=== PATIENT | female | born 1985 | race Caucasian/White ===

== ENCOUNTER 2018-06-23 19:55 | Emergency (ER) | payer OTHER ==
[~2018-06-23] VITALS: Ht 149.9 cm; Wt 68.0 kg
[2018-06-23 20:36] VITALS: BP 140/65
--- NOTE | 2018-06-23 20:36 | ED EAR COMPLAINT ---
History of Present Illness General Chief Complaint: Ear Complaints Stated Complaint: RIGHT EAR PAIN X 2 DAYS PER PT Source: patient Exam Limitations: no limitations Vital Signs & Intake/Output Vital Signs & Intake/Output Vital Signs Date Time Temp Pulse Resp B/P B/P Pulse O2 O2 Flow FiO2 Mean Ox Delivery Rate 06/23 2036 98.2 80 16 140/65 98 Room Air Room Air ED Intake and Output 06/24 0000 06/23 1200 Intake Total 0 Output Total Balance 0 Intake, Oral 0 Patient 150 lb Weight Allergies Coded Allergies: MDX - Codeine (CODEINE) (Severe, THROAT CLOSES 06/23/18) MDX - Bismuth Subsalicylate (From PEPTO BISMOL) (Intermediate, RASH 06/23/18) Reconcile Medications Amoxicillin/Potassium Clav (Augmentin 875-125 Tablet) 875 MG-125 MG TABLET 1 TAB PO BID OTTISI MEDIA Ciprofloxacin HCl/Dexameth (Ciprodex Otic Suspension) 0.3 %-0.1 % DROPS.SUSP 4 GTT OT BID OTITIS EXTERNA Triage Nurses Notes Reviewed? yes Onset: Abrupt Duration: day(s):, constant Timing: recent history Injury Environment: home Severity: moderate, severe No Modifying Factors: none : No Patient currently breastfeeds: No HPI: 33-year-old female comes into the emergency room for further evaluation of right ear pain. Symptoms been going on for the past couple days. Patient reports that today she cannot hear out of her right ear. She comes in for further evaluation. Denies any other associated symptoms. (Zach Mckoy) Past History Travel History Traveled to [place] past 21 day No Medical History Any Pertinent Medical History? see below for history Neurological: NONE EENT: NONE Cardiovascular: NONE Respiratory: NONE Gastrointestinal: NONE Hepatic: NONE Renal: NONE Musculoskeletal: NONE Psychiatric: NONE Endocrine: NONE Blood Disorders: NONE Cancer(s): NONE OPERATIONS MANAGER ASSISTANT/Reproductive: NONE Surgical History Surgical History: non-contributory Psychosocial History What is your primary language Egyptian Tobacco Use: Never used ETOH Use: denies use Illicit Drug Use: denies illicit drug use Family History Hx Contributory? No (Zach Mckoy) Review of Systems Review of Systems Constitutional: Reports: no symptoms. EENTM: Reports: see HPI. Respiratory: Reports: no symptoms. Cardiovascular: Reports: no symptoms. GI: Reports: no symptoms. Genitourinary: Reports: no symptoms. Musculoskeletal: Reports: no symptoms. Skin: Reports: no symptoms. Neurological/Psychological: Reports: no symptoms. Hematologic/Endocrine: Reports: no symptoms. Immunologic/Allergic: Reports: no symptoms. All Other Systems: Reviewed and Negative (Zach Mckoy) Physical Exam Physical Exam General Appearance: well developed/nourished, mild distress Head: atraumatic Eyes: Bilateral: normal appearance. Ears: Right: swelling (external auditory canal), Tympanic dull. Nose: normal inspection Neck: normal inspection Cardiovascular/Respiratory: no respiratory distress Back: normal inspection Neurologic/Psych: awake, alert, oriented x 3, normal mood/affect Skin: intact, normal color, warm/dry (Zach Mckoy) Progress Differential Diagnoses I considered the following diagnoses in my evaluation of the patient: Otitis media, otitis externa, mastoiditis, Plan of Care: 06/23/2018 9:58:47 PM Patient clinically looks well. In no apparent distress. Nontoxic-appearing. Symptoms are most consistent with otitis externa. Patient started on oral antibiotics. Patient will require topical drops. Initial ED EKG: none (Zach Mckoy) Departure Departure Disposition: HOME OR SELF CARE Condition: Stable Clinical Impression Primary Impression: Right otitis externa Referrals: Patient Has No Primary Care Dr (PCP/Family) Additional Instructions: Use Ciprodex drops as prescribed. Take Augmentin as prescribed. Follow-up with ENT Dr. if not better by Thursday. Return if any other concerns. Please go over all results of today's visit with your primary care doctor. Contact your primary care doctor to let them know you were here in the emergency room. There may be nonspecific findings which may not be related to your visit today here in the emergency room but may require further evaluation and chronic monitoring by your primary care doctor. If you had a laceration today the chance of foreign body always remains. You should follow-up with your primary care doctor for recheck in 3-5 days for a wound check. If you had an x-ray done there is a chance that a fracture could have been missed on initial read and you should follow-up with your primary care doctor for repeat x-rays if symptoms persist. If your blood pressure was elevated here in the emergency room please have rechecked by [facility] primary care doctor within the next 48. If you were prescribed a narcotic here in the emergency room or any type of controlled substances you're not allowed to drive while taking this medication or operate any type of heavy machinery. Narcotics can make you feel lightheaded dizziness nausea and can cause constipation. You may need to picking belt operator a stool softener. Thank you for choosing [facility] emergency room. Please return to the emergency room immediately if you have any other concerns worsening of symptoms. Departure Forms: Customer Survey General Discharge Information Prescriptions: Current Visit Scripts Ciprofloxacin HCl/Dexameth (Ciprodex Otic Suspension) 4 GTT OT BID #1 BOT Amoxicillin/Potassium Clav (Augmentin 875-125 Tablet) 1 TAB PO BID #20 TAB (Zach Mckoy) PA/FLAKER TENDER Co-Sign Statement Statement: ED Attending supervision documentation- I saw and evaluated the patient. I have also reviewed all the pertinent lab results and diagnostic results. I agree with the findings and the plan of care as documented in the PA's/FLAKER TENDER's documentation. x I have reviewed the ED Record and agree with the PA's/FLAKER TENDER's documentation. [] Additions or exceptions (if any) to the PAs/FLAKER TENDER's note and plan are summarized below: [] (Nery VELARDE,Haroldo)
[2018-06-23] MEDS ORDERED: AUGMENTIN 875-1 EACH PO (20:37)
[2018-06-23] MEDS ORDERED: CIPRODEX OTIC7.5 ML OT (20:37)
== END 2018-06-23 20:41 ==
LOC: ERH 19:55
DX: H60.91 Unspecified otitis externa, right ear (principal)